=== PATIENT | female | born 1995 | race Two or more races ===

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

== ENCOUNTER 2017-01-06 11:41 | Outpatient (CLI) | payer BC ==
[2017-01-06 20:13] LABS: BASOPHILS # (AUTO) 0.1 10^3/uL (0.0-0.1); BASOPHILS % (AUTO) 0.7 %; EOSINOPHILS # (AUTO) 0.2 10^3/uL (0.0-0.7); EOSINOPHILS % (AUTO) 2.5 %; HCT - HEMATOCRIT 38.5 % (37.0-47.0); HGB - HEMOGLOBIN 12.5 g/dL (12.0-16.0); LYMPHOCYTES # (AUTO) 1.6 10^3/uL (1.5-3.5); MEAN CORPUSCULAR HEMOGLOBIN 25.5 pg (27.0-31.0); MEAN CORPUSCULAR HGB CONC 32.3 g/dL (32.0-36.0); MEAN PLATELET VOLUME 9.7 fL (7.9-10.8); MONOCYTES # (AUTO) 0.5 10^3/uL (0.0-1.0); MONOCYTES % (AUTO) 7.7 %; NEUTROPHILS # (AUTO) 4.6 10^3/uL (1.5-6.6); NEUTROPHILS % (AUTO) 66.1 %; NUCLEATED RED BLOOD CELLS AUTO 0.1 /100WBC; RED BLOOD COUNT 4.88 10^6/uL (4.20-5.40); RED CELL DISTRIBUTION WIDTH 18.3 % (12.0-15.0); UNCORRECTED WHITE BLOOD COUNT 6.9 x10^3/uL; WHITE BLOOD COUNT 6.9 x10^3/uL (4.8-10.8)
[2017-01-06 21:36] LABS: PROLACTIN 21.91 ng/mL
[2017-01-06 21:50] LABS: THYROID STIMULATING HORMONE 0.86 uIU/mL (0.34-5.60)
== END 2017-01-06 11:42 | disposition home or self-care (01) ==
LOC: LAB.WCP 11:41
PROVIDERS: ATTEND Family Medicine
DX: O92.6 Galactorrhea (principal)
CPT/HCPCS: 36415; 84146; 84443; 85025

== ENCOUNTER 2020-04-05 12:25 | Outpatient (CLI) | payer BC ==
[2020-04-05 18:45] LABS: ALBUMIN 4.2 g/dL (3.2-5.5); ALBUMIN/GLOBULIN RATIO 1.5 (1.0-2.2); BASOPHILS # (AUTO) 0.1 10^3/uL (0.0-0.1); BASOPHILS % (AUTO) 0.7 %; BILIRUBIN,TOTAL 0.5 mg/dL (0.2-1.0); CALCIUM 9.1 mg/dL (8.5-10.3); CREATININE 0.7 mg/dL (0.4-1.0); EOSINOPHILS # (AUTO) 0.2 10^3/uL (0.0-0.7); EOSINOPHILS % (AUTO) 2.3 %; LYMPHOCYTES # (AUTO) 1.6 10^3/uL (1.5-3.5); LYMPHOCYTES % (AUTO) 22.9 %; MEAN CORPUSCULAR HEMOGLOBIN 31.3 pg (27.0-31.0); MEAN CORPUSCULAR HGB CONC 33.9 g/dL (32.0-36.0); MEAN CORPUSCULAR VOLUME 92.5 fL (81.0-99.0); MEAN PLATELET VOLUME 12.1 fL (7.9-10.8); MONOCYTES # (AUTO) 0.5 10^3/uL (0.0-1.0); MONOCYTES % (AUTO) 6.8 %; NEUTROPHILS # (AUTO) 4.7 10^3/uL (1.5-6.6); NEUTROPHILS % (AUTO) 67.2 %; PLT - PLATELET COUNT 207 10^3/uL (130-450); RED BLOOD COUNT 4.15 10^6/uL (4.20-5.40); RED CELL DISTRIBUTION WIDTH 12.2 % (12.0-15.0)
[2020-04-05 19:35] LABS: FOLLICLE STIMULATING HORMONE 6.77 mIU/mL
[2020-04-05 19:36] LABS: LUTEINIZING HORMONE 1.73 mIU/mL
== END 2020-04-05 23:59 | disposition home or self-care (01) ==
LOC: LAB.WCP 12:25
PROVIDERS: ATTEND Nurse Practitioner Family
DX: R63.6 Underweight (principal); N92.6 Irregular menstruation, unspecified
CPT/HCPCS: 36415; 80053; 83001; 83002; 84144; 84443; 85025

== ENCOUNTER 2020-05-24 10:24 | Outpatient (CLI) | payer BC ==
[2020-05-24 11:07] LABS: MEAN CORPUSCULAR HEMOGLOBIN 30.5 pg (27.0-31.0); MEAN CORPUSCULAR HGB CONC 33.8 g/dL (32.0-36.0); MEAN CORPUSCULAR VOLUME 90.4 fL (81.0-99.0); MEAN PLATELET VOLUME 11.6 fL (7.9-10.8); RED BLOOD COUNT 4.26 10^6/uL (4.20-5.40); RED CELL DISTRIBUTION WIDTH 12.3 % (12.0-15.0); WHITE BLOOD COUNT 6.5 x10^3/uL (4.8-10.8)
== END 2020-05-24 10:25 | disposition home or self-care (01) ==
LOC: LAB 10:24
PROVIDERS: ATTEND Nurse Practitioner Obstetrics & Gynecology
DX: N92.0 Excessive and frequent menstruation with regular cycle (principal)
CPT/HCPCS: 36415; 81241; 81599; 85027; 85240; 85245; 85246; 85730

== ENCOUNTER 2020-12-21 14:12 | Emergency (ER) | payer BC ==
[2020-12-21 14:18] VITALS: BP 123/84
[2020-12-21] MEDS ORDERED: TETANUS/DIPHTHERIA/PERTUSSIS 0.5 ML SYRINGE IM ONE (14:25)
[2020-12-21] MEDS ORDERED: IBUPROFEN 600 MG TABLET PO STA (14:25)
[2020-12-21] MEDS ORDERED: AMOX/CLAV 875 MG/125 MG TABLET PO STA (14:25)
--- NOTE | 2020-12-21 14:27 | ED Physician Documentation ---
History of Present Illness - Stated complaint Stated Complaint: DOG BITE - Chief complaint Chief Complaint: General - History obtained from History obtained from: Patient - Additonal information Additional information: Her own fully immunized dog bit her just prior to arrival to both index fingers. Tetanus is unknown. Pain is mild to the right index finger and moderate to the left index finger. Review of Systems Constitutional: reports: Reviewed and negative Eyes: reports: Reviewed and negative Ears: reports: Reviewed and negative Nose: reports: Reviewed and negative Throat: reports: Reviewed and negative PD PAST MEDICAL HISTORY - Present Medications Home Medications: Ambulatory Orders Medication Instructions Recorded Confirmed Amox/Clav 875/125 [Augmentin] 1 each PO Q12H #10 tablet 12/21/20 - Allergies Allergies/Adverse Reactions: Allergies Allergy/AdvReac Type Severity Reaction Status Date / Time No Known Drug Allergies Allergy Verified 12/21/20 14:18 PD ED PE NORMAL - Vitals Vital signs reviewed: Yes - General General: Alert and oriented X 3, No acute distress - Extremities Extremities: Other (see mdm, text box too small:) - Neuro Neuro: Alert and oriented X 3, Normal speech Results - Vitals Vitals: Vital Signs - 24 hr 12/21/20 14:14 Temperature 36.2 C L Heart Rate 115 H Respiratory 15 Rate Blood Pressure 123/84 H O2 Saturation 100 Oxygen O2 Source Room air - Rads (name of study) L 2nd finger XR Radiology: EMP read contemporaneously PD MEDICAL DECISION MAKING - ED course ED course: Finger exam: To the right index finger there is just a little neck on the radial side proximal to the nail. No limited range of motion or tenderness. The left index finger has 2 puncture wounds on both anterior and posterior sides basically at the level of the DIP. Limited range of motion due to pain, but there is some incomplete numbness on both sides of the tip of the left index finger. Normal cap refill at the tip. Wounds were irrigated and dressed, finger x-ray demonstrates no evidence of bony involvement. Departure - Departure Disposition: 01 Home, Self Care Clinical Impression: Dog bite of finger Qualifiers: Encounter type: initial encounter Qualified Code(s): S61.259A - Open bite of unspecified finger without damage to nail, initial encounter Condition: Good Record reviewed to determine appropriate education?: Yes Instructions: ED Bite Dog Prescriptions: Amox/Clav 875/125 [Augmentin] 1 each PO Q12H #10 tablet Comments: Note for your records that you got a Tdap shot today, this is good for 10 years except for particularly dirty wounds. Return for signs of infection including redness, increased swelling, drainage, increased pain, and fever. You can replace the dressing placed today with a Band-Aid tomorrow evening. At that point it is fine to wash with soap and water. Discharge Date/Time: 12/21/20 15:07
--- NOTE | 2020-12-21 15:01 | XRAY Report ---
PROCEDURE: Finger(s) LT INDICATIONS: 2nd finger dog bite TECHNIQUE: AP hand, 2 views of the second finger(s) acquired. COMPARISON: None FINDINGS: Bones: No fractures or dislocations. No suspicious bony lesions. Soft tissues: No suspicious soft tissue calcifications. No soft tissue gas. No radiopaque foreign shefali dies. IMPRESSION: Unremarkable left second finger. Reviewed by: Harrison Navarro MD on 12/21/2020 2:00 PM [email or web address] Approved by: Harrison Navarro MD on 12/21/2020 2:00 PM GAMARK Station ID: [id number]
== END 2020-12-21 15:07 | disposition home or self-care (01) ==
LOC: ED 14:12
DX: S61.251A Open bite of left index finger without damage to nail, initial encounter (principal); S61.250A Open bite of right index finger without damage to nail, initial encounter; Z23 Encounter for immunization; W54.0XXA Bitten by dog, initial encounter
CPT/HCPCS: 73140; 90471; 90715; 99283; A9270

== ENCOUNTER 2021-11-10 08:00 | Outpatient (CLI) | payer BC ==
[2021-11-10 22:34] LABS: BACTERIAL VAGINOSIS DNA NEGATIVE (NEGATIVE); CANDIDA GLABRATA DNA NEGATIVE (NEGATIVE); CANDIDA GROUP DNA NEGATIVE (NEGATIVE); CANDIDA KRUSEI DNA NEGATIVE (NEGATIVE); TRICHOMONAS VAGINALIS DNA NEGATIVE (NEGATIVE)
== END 2021-11-11 17:21 | disposition home or self-care (01) ==
LOC: LAB.N 08:00
PROVIDERS: ATTEND Obstetrics & Gynecology
DX: N76.0 Acute vaginitis (principal)
CPT/HCPCS: 81514